=== PATIENT | male | born 1975 | race Caucasian/White ===

== ENCOUNTER 2020-09-01 17:19 | Emergency (ER) | payer OTHER ==
[~2020-09-01] VITALS: Ht 185.4 cm; Wt 72.7 kg
[2020-09-01 17:23] VITALS: Ht 185.4 cm; Wt 72.7 kg
[2020-09-01 18:30] LABS: BASOPHILS 0.1 % (0-2); EOSINOPHILS 0.1 % (0-7); HEMATOCRIT 41.1 % (42.0-54.0); HEMOGLOBIN 14.2 g/dL (13.5-17.5); IMMATURE GRANULOCYTES 0.2 % (0-5); LYMPHOCYTES 7.3 % (15-50); MCH 29.9 pg (26.0-34.0); MCHC 34.5 g/dL (31.0-37.0); MCV 86.5 fL (80.0-100.0); MONOCYTES 6.1 % (2-11); NEUTROPHILS 86.2 % (40-80); PLATELET COUNT 227 10x3/uL (130-400); RBC 4.75 10x6/uL (4.20-6.10); RDW 11.6 % (11.5-14.5); WBC 12.7 10x3/uL (4.8-10.8)
[2020-09-01 18:54] LABS: CALC OSMOLALITY 281 mosm/kg (275-300); CALCIUM 8.9 mg/dL (8.5-10.1); CHLORIDE - SERUM 106 mmol/L (98-107); CREATININE - SERUM 1.1 mg/dL (0.6-1.3); GLUCOSE 106 mg/dL (74-106); POTASSIUM - SERUM 3.6 mmol/L (3.5-5.1); SODIUM 141 mmol/L (136-145); UREA NITROGEN 15 mg/dL (7-18); eGFR NON AFRICAN AMERICAN 76 mL/min (90-120)
[2020-09-01 19:00] LABS: ALBUMIN 3.8 g/dL (3.4-5.0); ALKALINE PHOSPHATASE 54 U/L (30-120); ALT (SGPT) 32 U/L (10-68); PROTEIN - SERUM 6.6 g/dL (6.4-8.2)
[2020-09-01 19:56] VITALS: BP 122/89
== END 2020-09-01 19:56 | disposition home or self-care (01) ==
LOC: D.ER 17:19
PROVIDERS: Emergency Medicine
DX: R06.4 Hyperventilation (principal); E83.51 Hypocalcemia; R06.02 Shortness of breath